=== PATIENT | male | born 1960 | race Caucasian/White ===

== ENCOUNTER 2024-12-24 16:07 | Inpatient (IN) | payer MEDICARE, OTHER ==
[~2024-12-24] VITALS: Ht 177.8 cm; Wt 76.7 kg
--- NOTE | 2024-12-24 16:17 | ED.PDOC ---
History of Present Illness HPI Comments This is a 64 year old male LYNNA presenting to the ED from [facility] with chief complaint of generalized weakness and abnormal labs. EMS reports that the patient has been experiencing generalized weakness for the past 2-3 weeks. EMS relays that the patient had recent blood work performed at [facility] which noted a Lactic Acid of 10, calling 911 during his visit due to the labs. Patient denies any chest pain, dizziness, N/V, SOB, abdominal pain, dysuria, flank pain, or fever. Time Seen by MD: 16:14 Reviewed Notes: Nurses Notes, Shaper Operator Notes, Medications, Allergies Allergies: Coded Allergies: NO KNOWN ALLERGIES (Unverified , 12/24/24) Information Source: Patient, Emergency Med Personnel Mode of Arrival: EMS Severity: Moderate Timing: Weeks Duration: Since onset Prehospital treatment: None Past Medical History PAST MEDICAL HISTORY: Denies Surgical History: Denies all surgeries Family History Family History: Reviewed,noncontributory to illness Social History Smoker: Non-Smoker Alcohol: Denies ETOH Use Drugs: Denies Drug Use Lives In: Home Constitutional: reports: fatigue, weakness; denies: chills, diaphoresis, fever, malaise, sweats, others EENTM: denies: blurred vision, double vision, ear bleeding, ear discharge, ear drainage, ear pain, ear ringing, eye pain, eye redness, hearing loss, mouth pain, mouth swelling, nasal discharge, nose bleeding, nose congestion, nose pain, photophobia, tearing, throat pain, throat swelling, voice changes, others Respiratory: denies: cough, hemoptysis, orthopnea, SOB at rest, shortness of breath, SOB with excertion, stridor, wheezing, others Cardiovascular: denies: chest pain, dizzy spells, diaphoresis, Dyspnea on exertion, edema, irregular heart beat, left arm pain, lightheadedness, palpitations, PND, syncope, others Gastrointestinal: denies: abdomen distended, abdominal pain, blood streaked bowels, constipated, diarrhea, dysphagia, difficulty swallowing, hematemesis, melena, nausea, poor appetite, poor fluid intake, rectal bleeding, rectal pain, vomiting, others Genitourinary: denies: burning, dysuria, flank pain, frequency, hematuria, incontinence, penile discharge, penile sore, pain, testicle pain, testicle swelling, urgency, others Neurological: denies: dizziness, fainting, headache, left sided numbness, left sided weakness, numbness, paresthesia, pre-existing deficit, right sided numbness, right sided weakness, seizure, speech problems, tingling, tremors, weakness, others Musculoskeletal: denies: back pain, gout, joint pain, joint swelling, muscle pain, muscle stiffness, neck pain, others Integumetry: denies: bruises, change in color, change in hair/nails, dryness, laceration, lesions, lumps, rash, wounds, others Allergic/Immunocompromised: denies: Difficulty Healing, Frequent Infections, Hives, Itching, others Hematologic/Lymphatic: denies: anemia, blood clots, easy bleeding, easy bruising, swollen glands, others Endocrine: denies: excessive hunger, excessive sweating, excessive thirst, excessive urination, flushing, intolerance to cold, intolerance to heat, unexplained weight gain, unexplained weight loss, others Psychiatric: denies: anxiety, bipolar disorder, depression, hopeless, panic disorder, schizophrenia, sleepless, suicidal, others All Other Systems: Reviewed and Negative Physical Exam General Appearance: Moderate Distress, Normal HEENT: Normal ENT Inspection, Pharynx Normal, TMs Normal Neck: Full Range of Motion, Non-Tender, Normal, Normal Inspection Respiratory: Chest Non-Tender, Lungs Clear, No Accessory Muscle Use, No Respiratory Distress, Normal Breath Sounds Cardiovascular: No Edema, No JVD, No Murmur, No Gallop, Normal Peripheral Pulses, Regular Rate/Rhythm Breast Exam: Deferred Gastrointestinal: No Organomegaly, Non Tender, No Pulsatile Mass, Normal Bowel Sounds, Soft Genitalia: Deferred Pelvic: Deferred Rectal: Deferred Extremities: No calf tenderness, Normal capillary refill, Normal inspection, Normal range of motion, Non-tender, No pedal edema Musculoskeletal : Apperance: Normal Neurologic: Alert, dyer helper II-XII nml as Tested, No Motor Deficits, Normal Affect, Normal Mood, No Sensory Deficits Cerebellar Function: NOT DONE Reflexes: NOT DONE Skin: Dry, Normal Color, Warm Peripheral Pulses: 3+ Radial (R), 3+ Radial (L) Lymphatic: No Adenopathy Was a procedure done? Was a procedure done?: No Differential Dx Considerations may include: Dehydration Electrolyte imbalance X-Ray, Labs, Meds, VS Vital Signs Date Time Temp Pulse Resp B/P (MAP) Pulse Ox O2 Delivery O2 Flow Rate FiO2 12/24/24 16:30 80 14 99 Room Air* 0 21 12/24/24 16:30 98.1 80 14 161/87 (111) 99 98.1 12/24/24 16:21 98.1 82 18 156/85 100 98.1 Lab Test 12/24/24 16:29 Range/Units White Blood Count 8.1 4.4-10.8 10^3/uL Red Blood Count 3.12 L 4.5-5.90 10^6/uL Hemoglobin 11.2 L 13.5-17.5 g/dL Hematocrit 33.3 L 41.0-53.0 % Mean Corpuscular Volume 106.7 H 80.0-100.0 fL Mean Corpuscular Hemoglobin 35.9 H 28.0-32.0 pg Mean Corpuscular Hemoglobin Concent 33.7 32.0-36.0 g/dL Red Cell Distribution Width 13.5 11.8-14.3 % Platelet Count 215 140-450 10^3/uL Mean Platelet Volume 9.5 6.9-10.8 fL Neutrophils (%) (Auto) 75.1 37.0-80.0 % Lymphocytes (%) (Auto) 12.2 10.0-50.0 % Monocytes (%) (Auto) 11.7 0.0-12.0 % Eosinophils (%) (Auto) 0.0 0.0-7.0 % Basophils (%) (Auto) 1.0 0.0-2.0 % Neutrophils # (Auto) 6.1 1.6-8.6 10 ^3/uL Lymphocytes # (Auto) 1.0 0.4-5.4 10 ^3/uL Monocytes # (Auto) 0.9 0-1.3 10 ^3/uL Eosinophils # (Auto) 0 0-0.8 10 ^3/uL Basophils # (Auto) 0.1 0-0.2 10 ^3/uL Nucleated Red Blood Cells 0.4 % Sodium Level Pending Potassium Level Pending Chloride Level Pending Carbon Dioxide Level Pending Anion Gap Pending Blood Urea Nitrogen Pending Creatinine Pending Glomerular Filtration Rate Calc Pending BUN/Creatinine Ratio Pending Serum Glucose Pending Lactic Acid Level 9.8 *H 0.4-2.0 mmol/L Calcium Level Pending Current Medications Medications (Trade) Dose Ordered Sig/Florinda Route Start Time Stop Time Status Last Admin Sodium Chloride 1,000 ml @ 1,000 mls/hr Q1H ONCE IV 12/24/24 16:15 12/24/24 17:14 DC 12/24/24 16:39 Patient alert. Feeling weak. Good muscle strength. Vitals stable. Was at [facility] for which his lactic acid was elevated. Establish intravenous access. Was given fluids. Physical examination pristine. Lactic acidosis elevated. WBC within normal limits. Explained to the patient. Continue monitoring. Will be followed by night physician. Time of 1ST Reevaluation: 17:14 Reevaluation 1ST: Improved Patient Education/Counseling: Diagnosis, Treatment Family Education/Counseling: No Family Present SEPSIS Sepsis Screen Physician Orders Urinalysis (12/24/24 16:14) Basic Metabolic Panel (12/24/24 16:14) Vital Signs Date Time Temp Pulse Resp B/P (MAP) Pulse Ox O2 Delivery O2 Flow Rate FiO2 12/24/24 16:30 80 14 99 Room Air* 0 21 12/24/24 16:30 98.1 80 14 161/87 (111) 99 98.1 12/24/24 16:21 98.1 82 18 156/85 100 98.1 Laboratory Tests Test 12/24/24 16:29 Lactic Acid Level 9.8 mmol/L (0.4-2.0) *H White Blood Count 8.1 10^3/uL (4.4-10.8) Medications Medications Dose Ordered Sig/Florinda Route Start Time Stop Time Status Last Admin Dose Admin Sodium Chloride 1,000 ml @ 1,000 mls/hr Q1H ONCE IV 12/24/24 16:15 12/24/24 17:14 DC 12/24/24 16:39 Departure 1 Departure Time of Disposition: 16:20 Impression: Primary Impression: Dehydration Additional Impressions: Generalized weakness Lactic acidosis Disposition: 09 ADMITTED INPATIENT Admit to: Med Surg Condition: Guarded Critical Care Note Critical Care Time?: No Stability Stability form required: No Heart Score Heart Score: Heart Score Response (Comments) Value History N/A 0 EKG N/A 0 Age N/A 0 Risk Factors N/A 0 Troponin N/A 0 Total 0 I personally scribed for SHAVON JEFFERS MD ([email or web address]) on 12/24/24 at 16:17. Electronically submitted by Marcin Zuniga ([email or web address]). SHAVON JEFFERS MD Dec 24, 2024 16:17
[2024-12-24 16:30] VITALS: PULSE 80; RESP 14; O2SAT 99
[2024-12-24] MEDS: SODIUM CHLORIDE 0.9% 1,000 ML IV ONE ×2 (16:39→20:08)
[2024-12-24 16:55] LABS: Hematocrit 33.3 % (41.0-53.0); Hemoglobin 11.2 g/dL (13.5-17.5); Mean Corpuscular Hemoglobin 35.9 pg (28.0-32.0); Mean Corpuscular Volume 106.7 fL (80.0-100.0); Nucleated Red Blood Cells % 0.4 %
[2024-12-24 17:13] LABS: Lactic Acid w/Reflex 9.8 mmol/L (0.4-2.0)
[2024-12-24 17:52] LABS: Sodium 142 mmol/L (136-145)
[2024-12-24 17:53] LABS: Anion Gap 32 (5-15)
[2024-12-24 17:54] LABS: Calcium 9.1 mg/dL (8.7-10.4)
[2024-12-24 17:58] LABS: BUN/Creatinine Ratio 25.2 (10.0-20.0); Glucose 76 mg/dL (74-106)
[2024-12-24 18:39] LABS: Blood Urea Nitrogen 35 mg/dL (9-23); Carbon Dioxide 17 mmol/L (20-31); Chloride 93 mmol/L (98-107); Potassium 3.4 mmol/L (3.5-5.1)
[2024-12-24 19:25] VITALS: PULSE 76; RESP 18; O2SAT 99
[2024-12-24] MEDS: PIPERACILLIN-TAZOB 3.375GM 100 ML IV ONE (20:08)
[2024-12-24] MEDS ORDERED: DOCUSATE SOD 100 MG CAP PO PRN (21:00)
[2024-12-24] MEDS ORDERED: HYDROcodone-ACET 5/325MG TAB PO PRN (21:00)
[2024-12-24] MEDS ORDERED: ACETAMINOPHEN 325 MG TAB PO PRN (21:00)
[2024-12-24] MEDS ORDERED: ONDANSETRON HCL 4 MG/2 ML VIAL IV PRN (21:00)
[2024-12-24] MEDS: SODIUM CHLORIDE 0.9% 1,000 ML IV SCH (21:10)
--- NOTE | 2024-12-24 21:53 | DVHHP2 ---
History of Present Illness Reason for Visit: Generalized weakness History of Present Illness The patient is a 64-year-old male who denies past medical history presented to [facility] ED with complaint of generalized weakness. Patient reports he has been experiencing generalized weakness for the past 2-3 weeks, getting worse today that prompted this visit. Patient was seen and evaluated in the ED, laboratory data shows WBC 8.1, platelets 215, sodium 142, potassium 3.4, BUN 35, creatinine 1.39, glucose 76, anion gap 32, calcium 9.1, lactic acid 9.5 trending down to 4.5, blood pressure 127/72, heart rate 76, temperature 97.8 F, O2 saturation 99% on room air. Patient was given IV fluid normal saline, started on IV antibiotic regimen Zosyn, please see medication orders section in the computer. On my assessment, patient denied chest pain, no headache, no dizziness, no diaphoresis, no shortness of breaths, no nausea, no vomiting, no fever, no chills. Patient was admitted for further evaluation and medical management. Past Medical History Denies past medical history Past Surgical History Denies all surgeries Family History Reviewed, noncontributory to the management of this case. Past Social History The patient lives at home, denies smoking, alcohol or illicit drugs abuse. Review of Systems Constitutional: Yes: Weakness, Other (Fatigue); No: Fever, Chills, Sweats, Malaise Eyes: No: Pain, Vision change, Conjunctivae inflammation, Eyelid inflammation, Other, Redness ENT: No: Ear pain, Ear discharge, Nose pain, Nose discharge, Nose congestion, Mouth pain, Mouth swelling, Throat pain, Throat swelling, Other Respiratory: No: Cough, Dry, Shortness of breath, SOB with excertion, Wheezing, Hemoptysis, Pleuritic Pain, Sputum, Wheezing, Other Cardiovascular: No: Chest Pain, Palpitations, Orthopnea, Paroxysmal Noc. Dyspnea, Edema, Lt Headedness, Other Gastrointestinal: No: Nausea, Vomiting, Abdominal Pain, Diarrhea, Constipation, Melena, Hematochezia, Other Genitourinary: No Dysuria, No Frequency, No Incontinence, No Hematuria, No Retention, No Other Musculoskeletal: No: other, neck pain, shoulder pain, arm pain, back pain, hand pain, leg pain, foot pain Skin: No: Rash, Lesions, Jaundice, Bruising, Other Neurological: No: Weakness, Numbness, Incoordination, Change in speech, Confusion, Seizures, Other Allergies: Coded Allergies: NO KNOWN ALLERGIES (Unverified , 12/24/24) Medications Current Medications Medications Dose Ordered Sig/Florinda Route Start Time Stop Time Status Last Admin Dose Admin Piperacillin Sod/ Tazobactam Sod 100 ml @ 25 mls/hr Q8H IV 12/25/24 14:00 Sodium Chloride 1,000 ml @ 120 mls/hr Q8H20M IV 12/24/24 21:00 12/24/24 21:10 120 MLS/HR Acetaminophen/ Hydrocodone Bitart 1 tab Q4HP PRN PO 12/24/24 21:00 Ondansetron HCl 4 mg Q4HP PRN IV 12/24/24 21:00 Docusate Sodium 100 mg BIDPRN PRN PO 12/24/24 21:00 Acetaminophen 650 mg Q6HP PRN PO 12/24/24 21:00 Exam Vital Signs Vital Signs Date Time Temp Pulse Resp B/P (MAP) Pulse Ox O2 Delivery O2 Flow Rate FiO2 12/24/24 20:00 79 12/24/24 19:25 97.8 18 127/72 (90) 99 97.8 12/24/24 19:25 Room Air* 0 21 General Appearance: Alert, Oriented X3, Cooperative, No acute distress HEENT: Atraumatic, PERRLA, EOMI, Mucous membr. moist/pink Respiratory: Clear to auscultation, Normal air movement Cardiovascular: Regular rate, Normal S1, Normal S2, No murmurs Abdominal: Normal bowel sounds, Soft, No tenderness, No hepatospenomegaly, No masses Extremities: No clubbing, No cyanosis, No edema, Normal pulses, No tenderness/swelling Skin: No rashes, No breakdown, No significant lesion Neuro: Normal speech, Normal tone, Sensation intact, Cranial nerves 3-12 NL, Reflexes 2+, Other (Generalized weakness) Psych/Mental Status: Mental status NL, Mood NL Labs/Xrays Labs Test 12/24/24 18:42 12/24/24 17:25 12/24/24 16:29 Range/Units Lactic Acid Level 4.5 *H 0.4-2.0 mmol/L Sodium Level 142 136-145 mmol/L Potassium Level 3.4 L 3.5-5.1 mmol/L Chloride Level 93 L 98-107 mmol/L Carbon Dioxide Level 17 L 20-31 mmol/L Anion Gap 32 H 5-15 Blood Urea Nitrogen 35 H 9-23 mg/dL Creatinine 1.39 H 0.700-1.30 mg/dL Glomerular Filtration Rate Calc 56 >90 mL/min BUN/Creatinine Ratio 25.2 H 10.0-20.0 Serum Glucose 76 74-106 mg/dL Calcium Level 9.1 8.7-10.4 mg/dL White Blood Count 8.1 4.4-10.8 10^3/uL Red Blood Count 3.12 L 4.5-5.90 10^6/uL Hemoglobin 11.2 L 13.5-17.5 g/dL Hematocrit 33.3 L 41.0-53.0 % Mean Corpuscular Volume 106.7 H 80.0-100.0 fL Mean Corpuscular Hemoglobin 35.9 H 28.0-32.0 pg Mean Corpuscular Hemoglobin Concent 33.7 32.0-36.0 g/dL Red Cell Distribution Width 13.5 11.8-14.3 % Platelet Count 215 140-450 10^3/uL Mean Platelet Volume 9.5 6.9-10.8 fL Neutrophils (%) (Auto) 75.1 37.0-80.0 % Lymphocytes (%) (Auto) 12.2 10.0-50.0 % Monocytes (%) (Auto) 11.7 0.0-12.0 % Eosinophils (%) (Auto) 0.0 0.0-7.0 % Basophils (%) (Auto) 1.0 0.0-2.0 % Neutrophils # (Auto) 6.1 1.6-8.6 10 ^3/uL Lymphocytes # (Auto) 1.0 0.4-5.4 10 ^3/uL Monocytes # (Auto) 0.9 0-1.3 10 ^3/uL Eosinophils # (Auto) 0 0-0.8 10 ^3/uL Basophils # (Auto) 0.1 0-0.2 10 ^3/uL Nucleated Red Blood Cells 0.4 % SEPSIS Sepsis Screen Date sepsis recognized/suspect: Dec 24, 2024 Time Sepsis recognized/suspect: 1924 Recent Procedure: No On Antibiotic Therapy: No Respiratory Rate >20: No Heart Rate >90: No Temp<36 C (96.8 F) or >38.3 C: No SBP <90 or MAP <65 mmHG: No New Acute Mental Status Change: No Is the patient on CPAP, BIPAP,: No Physician Orders Urinalysis (12/24/24 16:14) Blood Culture (12/24/24 20:16) Lactic Acid W/ Reflex Order (12/24/24 23:00) Allergies (12/24/24 20:46) Code Status (12/24/24 20:46) Sodium Chloride 0.9% (12/24/24 21:00) Oxygen Per Hour (12/24/24 20:46) Hydrocodone-Acet 5/325mg Tab ([place] 5/32 (12/24/24 21:00) Ondansetron Hcl (Zofran) (12/24/24 21:00) Docusate Sodium Capsule (Colace Capsule) (12/24/24 21:00) Complete Blood Count (12/25/24 04:00) Comprehensive Metabolic Panel (12/25/24 04:00) Cardiac Diet-2gna,Lofat,Lochol (12/25/24 Breakfast) Condition: Serious (12/24/24 20:46) Acetaminophen Tablet (Tylenol Tablet) (12/24/24 21:00) Bedrest With Bathroom Privileg (12/24/24 20:46) Sequential Compression Device (12/24/24 ) Piperacillin-Tazob 3.375gm (Zosyn 3.375g (12/25/24 14:00) Admit (12/24/24 21:50) Nitroglycerin Sublingual (Ntrostat Subli (12/24/24 22:00) Morphine Sulfate Injection (12/24/24 22:00) Stat Ekg For Chest Pain (12/24/24 21:50) Notify Md Of Changes From Base (12/24/24 21:50) 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 (12/24/24 21:50) Emergency Dysrhythmia Protocol (12/24/24 21:50) Rhythm Strips Once Every Shift (12/24/24 21:50) Oxygen By Nasal Cannula (12/24/24 21:50) Vital Signs Date Time Temp Pulse Resp B/P (MAP) Pulse Ox O2 Delivery O2 Flow Rate FiO2 7/31/25 20:00 79 12/24/24 19:25 97.8 76 18 127/72 (90) 99 97.8 12/24/24 19:25 76 18 99 Room Air* 0 21 12/24/24 16:52 78 12/24/24 16:30 80 14 99 Room Air* 0 21 12/24/24 16:30 98.1 80 14 161/87 (111) 99 98.1 12/24/24 16:21 98.1 82 18 156/85 100 98.1 Laboratory Tests Test 12/24/24 16:29 12/24/24 18:42 Lactic Acid Level 9.8 mmol/L (0.4-2.0) *H 4.5 mmol/L (0.4-2.0) *H White Blood Count 8.1 10^3/uL (4.4-10.8) Medications Medications Dose Ordered Sig/Florinda Route Start Time Stop Time Status Last Admin Dose Admin Piperacillin Sod/ Tazobactam Sod 100 ml @ 100 mls/hr ONCE ONCE IV 12/24/24 20:00 12/24/24 20:59 DC 12/24/24 20:08 100 MLS/HR Sodium Chloride 1,000 ml @ 120 mls/hr Q8H20M IV 12/24/24 21:00 12/24/24 21:10 120 MLS/HR Sodium Chloride 1,000 ml @ 1,000 mls/hr Q1H ONCE IV 12/24/24 16:15 12/24/24 17:14 DC 12/24/24 16:39 1,000 MLS/HR Sodium Chloride 1,000 ml @ 1,000 mls/hr Q1H ONCE IV 12/24/24 20:00 12/24/24 20:59 DC 12/24/24 20:08 1,000 MLS/HR Assessment/Plan Assessment/Plan Generalized weakness Hypokalemia Dehydration Lactic acidosis Plan 1. Admit to telemetry unit 2. Breathing treatment 3. Pain control management 4. IV antibiotic management 5. Management of fluids and electrolytes 6. Consultation for hospitalist 7. Diagnostic test x-ray 8. DVT prophylaxis-on SCDs 9. Repeat labs CBC, CMP in a.m. 10. Home medication reviewed and reconciled 11. Continue with current medical management 12. Treatment plan discussed with patient and RN. Patient verbalized understanding. Plan discussed with: Patient, Other (RN) My Orders Orders - CINDY KAUR DNP Procedure Category Date Status Time Lactic Acid W/ Reflex LAB 12/24/24 Logged Order 23:00 Allergies DESTINI 12/24/24 In Process 20:46 Code Status CODE 12/24/24 Transmitted 20:46 Sodium Chloride 0.9% PHA 12/24/24 In Process 21:00 Oxygen Per Hour RT 12/24/24 Transmitted 20:46 Hydrocodone-Acet PHA 12/24/24 In Process 5/325mg Tab (Elnora 21:00 Ondansetron Hcl PHA 12/24/24 In Process (Zofran) 21:00 Docusate Sodium PHA 12/24/24 In Process Capsule (Colace 21:00 Complete Blood Count LAB 12/25/24 Verified 04:00 Comprehensive LAB 12/25/24 Verified Metabolic Panel 04:00 Cardiac DIET 12/25/24 Transmitted Diet-2gna,Lofat,Lochol Breakfast Condition: Serious DESTINI 12/24/24 In Process 20:46 Acetaminophen Tablet PHA 12/24/24 In Process (Tylenol Tablet) 21:00 Bedrest With Bathroom DESTINI 12/24/24 In Process Privileg 20:46 Sequential DESTINI 12/24/24 In Process Compression Device Piperacillin-Tazob PHA 12/25/24 In Process 3.375gm (Zosyn 3.375g 14:00 Admit ADMIT 12/24/24 Transmitted 21:50 Nitroglycerin PHA 12/24/24 Transmitted Sublingual (Ntrostat 22:00 Morphine Sulfate PHA 12/24/24 Transmitted Injection 22:00 Stat Ekg For Chest [facility] 12/24/24 Transmitted Pain 21:50 Notify Md Of Changes [facility] 12/24/24 Transmitted From Base 21:50 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
[2024-12-24] MEDS ORDERED: MORPHINE SULFATE INJ 2 MG/ml SYRG IV PRN (22:00)
[2024-12-24] MEDS ORDERED: NITROGLYCERIN 0.4 MG SL TAB SL PRN (22:00)
[2024-12-24 22:42] LABS: Urine Protein, UAD TRACE (Negative)
[2024-12-24 23:24] LABS: Lactic Acid w/Reflex 3.6 mmol/L (0.4-2.0)
[2024-12-25] VITALS (8 sets, daily range): BP systolic 114–125; BP diastolic 60–77; PULSE 73–85; RESP 12–85; TEMP 97.9–98.9; O2SAT 96–100
[2024-12-25 04:27] LABS: Hematocrit 26.4 % (41.0-53.0); Hemoglobin 9.3 g/dL (13.5-17.5); Mean Corpuscular Hemoglobin 36.5 pg (28.0-32.0); Mean Corpuscular Volume 103.5 fL (80.0-100.0); Nucleated Red Blood Cells % 0.3 %
[2024-12-25 04:40] LABS: Alanine Aminotransferase 23 U/L (7-40); Albumin 3.7 g/dL (3.2-4.8); Alkaline Phosphatase 60 U/L (46-116); Anion Gap 23 (5-15); BUN/Creatinine Ratio 24.4 (10.0-20.0); Calcium 8.8 mg/dL (8.7-10.4); Carbon Dioxide 23 mmol/L (20-31); Glucose 86 mg/dL (74-106); Sodium 142 mmol/L (136-145)
[2024-12-25 04:42] LABS: Bilirubin, Total 1.3 mg/dL (0.2-1.0); Blood Urea Nitrogen 30 mg/dL (9-23); Chloride 96 mmol/L (98-107); Potassium 2.9 mmol/L (3.5-5.1); Total Protein 5.3 g/dL (5.7-8.2)
[2024-12-25] MEDS: POTASSIUM CHL 20MEQ/100ML 100 ML IV ONE (10:29)
--- NOTE | 2024-12-25 10:39 | DVH ---
EXAM: XY CHEST XRAY 1 VIEW Indication: pain likely aspiration Technique: Single frontal view of the chest was obtained Comparison: None FINDINGS: Lines and Tubes: None Lungs: No focal consolidation. Pleura: No effusion. No pneumothorax. Cardiomediastinal contours: Unremarkable Bones: No acute osseous abnormality. IMPRESSION: No acute cardiopulmonary disease.
--- NOTE | 2024-12-25 13:27 | DVH ---
INDICATION: transamnitis TECHNIQUE: Multiple real-time sonographic images were obtained of the right upper quadrant. COMPARISON: None FINDINGS: The liver demonstrates increased echotexture without focal mass lesions. The liver measure s 16.7 cm. There is no intrahepatic or extrahepatic ductal dilatation. The common duct measures 0.6 cm. Post cholecystectomy. The right kidney measures 11.0 cm. The right kidney is normal in contour, size, and shape. The echoge nicity is normal. There is no hydronephrosis. The pancreas is not well visualized due to overlying bowel gas. IMPRESSION: Hepatic steatosis and hepatomegaly.
[2024-12-25] MEDS: SODIUM CHLORIDE 0.9% 500 ML IV ONE (13:35)
[2024-12-25] MEDS ORDERED: PIPERACILLIN-TAZOB 3.375GM 100 ML IV SCH (14:00)
[2024-12-25] MEDS: LIDOCAINE 2%HCL (LOCAL ANESTH.) INJ 10ml MDV ONE (14:32)
[2024-12-25] MEDS: cefTRIAXone 1GM/50ML D5W 50 ML IV SCH (15:20)
--- NOTE | 2024-12-25 15:21 | DVH ---
CT CT AB PEL WITH IV CON ONLY INDICATION: R/O SBO; MASS EXAM DATE: 12/25/2024 02:34 PM COMPARISON: None RADIATION DOSE: CTDIvol: 7.9 mGy, DLP: 416.32 mGy*cm PROCEDURE: Helical CT images were obtained of the abdomen and pelvis with IV contrast Sagittal and co vince reconstructions are provided. ORAL CONTRAST: None. ADDITIONAL IMAGES / REFORMATS: None All CT s cans at this medical facility are performed using dose modulation techniques as appropriate to a perf ormed exam including the following: Automated exposure control was utilized; adjustment of the MA and /or KV according to patient size; and use of iterative reconstruction technique. FINDINGS: LUNG BASE: Normal. LIVER: Hepatic steatosis. GALLBLADDER AND BILIARY TREE: Cholecystectomy clips. Mild pneumobilia, nonspecific. PANCREAS: Normal. SPLEEN: Normal. BOWEL: Severe colonic diverticulosis. Normal appendix. ADRENALS: 2.5 cm left adrenal nodule. KIDNEYS AND URETER: 1.3 cm peripherally calcified left kidney cystic lesion. Nonobstructive right kid wiliam stone. BLADDER: Normal. REPRODUCTIVE ORGANS: Normal. LYMPH NODES:No lymphadenopathy. PERITONEUM: No ascites or free air. No other fluid collection. VESSELS: Scattered atherosclerotic calcifications are noted. RETROPERITONEUM: Normal. ABDOMINAL WALL: Normal. BONES: Scattered osseous degenerative changes are noted. IMPRESSION: Mild pneumobilia, nonspecific. No small bowel obstruction visualized. Hepatic steatosis. Severe colonic diverticulosis. 2.5 cm left adrenal nodule.
[2024-12-25] MEDS: SODIUM CHLORIDE 0.9% 1,000 ML IV SCH (16:18)
--- NOTE | 2024-12-25 16:48 | DVHPNRES ---
Progress Note Date Seen: Dec 25, 2024 Resident Creating Document: JORY ARMAS RESIDENT Medical Necessity Reason Pt with a Central, PICC or Fol: No Subjective Review of Systems 64 year old male with history of hypertension came to [facility] with complaints of generalized weakness. Patient reports that he has been experiencing generalized weakness for the past month, which is associated with weakness and decrease in appetite. Yesterday he went to [facility] and his lactic acid levels were high for which he was sent to the emergency at our facility. Patient also reports vomiting twice yesterday at the lab, he says he had no nausea and the vomiting was sudden with food particles, no blood was seen. Patient also had vomiting twice today in the Emergency according to him. He has had no recent sick contacts or traveled anywhere and he does not think he ate anything that might have caused the vomiting. patient also complains of feeling lightheaded and says that he holds onto the piedra and doorknobs so that he does not topical over. On inquiry he says that he feels dizziness and lightheaded when he gets up from a sitting position all of a sudden. PMH: Hypertension PSH: Gallbladder removed, umbilical hernia repair Family history: Reviewed and noncontributory Social history: Patient lives alone with his dog. He denies smoking, alcohol or using any other illicit drugs Home medications: Zebeta 10 mg b.i.d., hydrochlorothiazide Allergies: Patient went to intensive care medicine specialist, did not find anything on allergy test but takes Zyrtec for hives. ROS: Patient was seen and examined by me at the bedside. Patient reports having 2 episodes of vomiting which was watery. Today we stop Zosyn and started ceftriaxone and metronidazole. A CT pelvis with contrast was done. We also did an ultrasound of the liver which showed hepatomegaly. Patient's potassium was 2.94 which was repleted with 80 mEq potassium chloride. We ordered a urine toxicology, blood alcohol level which was normal. We also ordered a B12 and folate level. TSH as also ordered which was normal and chest x-ray was normal too. Objective vital signs Vital Sign Date Time Temp Pulse Resp B/P (MAP) Pulse Ox O2 Delivery O2 Flow Rate FiO2 12/25/24 12:00 71 12/25/24 10:20 15 133/75 (94) 100 12/25/24 08:43 Room Air* 0 21 12/25/24 08:07 98.8 98.8 Total Intake and Output 12/24/24 12/24/24 12/25/24 15:00 23:00 07:00 Intake Total 2220 ml 240 ml Balance 2220 ml 240 ml medications Current Medications Medications Dose Ordered Sig/Florinda Route Start Time Stop Time Status Last Admin Dose Admin Acetaminophen/ Hydrocodone Bitart 1 tab Q4HP PRN PO 12/24/24 21:00 Ondansetron HCl 4 mg Q4HP PRN IV 12/24/24 21:00 Docusate Sodium 100 mg BIDPRN PRN PO 12/24/24 21:00 Acetaminophen 650 mg Q6HP PRN PO 12/24/24 21:00 Nitroglycerin 0.4 mg Q5MINP PRN SL 12/24/24 22:00 Morphine Sulfate 2 mg Q30M PRN IV 12/24/24 22:00 Metronidazole 100 ml @ 100 mls/hr Q8HR IV 12/25/24 15:00 12/25/24 16:18 100 MLS/HR Ceftriaxone Sodium 50 ml @ 100 mls/hr DAILY@09 IV 12/25/24 14:27 12/25/24 15:20 100 MLS/HR Sodium Chloride 1,000 ml @ 100 mls/hr Q10H IV 12/25/24 15:30 12/26/24 00:00 12/25/24 16:18 100 MLS/HR Enteral Nutritional Formula 240 ml BIDWM PO 12/25/24 18:00 UNV Folic Acid 1 mg DAILY PO 12/26/24 10:00 UNV Pantoprazole Sodium 40 mg DAILY IV 12/26/24 10:00 UNV Examination General Appearance: Alert, Oriented X3, Cooperative, No acute distress HEENT: Atraumatic, PERRLA, EOMI, Mucous membr. moist/pink Respiratory: Clear to auscultation, Normal air movement Cardiovascular: Regular rate, Normal S1, Normal S2, No murmurs Abdominal: Normal bowel sounds, Soft, No tenderness, No hepatospenomegaly, No masses Extremities: No clubbing, No cyanosis, No edema, Normal pulses, No tenderness/swelling Skin: No rashes, No breakdown, No significant lesion Neuro: Normal speech, Normal tone, Sensation intact, Cranial nerves 3-12 NL, Reflexes 2+, Other (Generalized weakness) Psych/Mental Status: Mental status NL, Mood NL laboratory and microbiology Laboratory Tests 12/25/24 03:19 Test 12/25/24 03:19 Range/Units Serum Glucose 86 74-106 mg/dL Labs and/or images reviewed: Labs reviewed by me, Image(s) reviewed by me Problem List/Assessment/Plan Problem List/Assessment/Plan #Intravascular volume depletion, possible gastroenteritis -IV fluids given -Zosyn stopped and ceftriaxone, metronidazole started today 12/25/2024 insulin -CT abdomen pelvis done with contrast: Mild pneumobilia, nonspecific. No small bowel obstruction visualized. -Repeat BNP -500 bolus in his 100 cc per hour #Hypokalemia -Repleted #COOPER due to VMN - IV fluids given, continue IV fluid - monitor labs #Mixed microcytic/ macrocytic anemia - B12, folate, iron panels ordered - stool occult blood ordered - monitor H&H #B12 deficiency -Repleted #Folate deficiency -Repleted #transaminitis -Ultrasound liver shows hepatomegaly #moderate malnutrition possible #Anion gap metabolic acidosis due to lactic acidosis/Starvation ketosis -Decrease intake -Weight loss -Hyperproteinemia -Ensure protein supplementation given #adrenal nodule (2.5cm left adrenal) -as seen in ct -outpatient followup GI prophylaxis: Protonix 40 mg IV daily Diet: full liquid diet Goals of care discussed with the patient for more than 27 minutes: Full code status Case discussed with , patient and nurse. Plan discussed with: Patient, Other (rn) My Orders My Orders Orders - JORY ARMAS RESIDENT Procedure Category Date Status Time Drug Screen LAB 12/25/24 Logged 09:41 Chest Xray 1 View XY 12/25/24 Resulted 09:42 Metronidazole PHA 12/25/24 In Process 500mg/100ml (Flagyl 15:00 Ceftriaxone 1gm/50ml PHA 12/25/24 In Process D5w (Rocephin) 14:27 B-Type Natriuretic LAB 12/25/24 In Process Peptide 15:22 Sodium Chloride 0.9% PHA 12/25/24 In Process 15:30 Orthostatic Vital ORDERS 12/25/24 Transmitted Signs 15:47 Nutritional PHA 12/25/24 Logged Supplements (Ensure 18:00 Iron Panel LAB 12/25/24 Logged 15:56 Cyanocobalamin PHA 12/25/24 Logged Injection (Vitamin 16:45 Folic Acid PHA 12/25/24 Logged 16:45 Folic Acid Tablet PHA 12/26/24 Logged 10:00 Reticulocyte Count LAB 12/26/24 Verified 04:00 Pantoprazole PHA 12/26/24 Logged (Protonix) 10:00 Full Liq Diet DIET 12/25/24 Verified Dinner Date of Service: Dec 25, 2024 Billing Provider: DOV DE LA ROSA MD Common Visit Codes: [id number] INP/OBS CARE(HIGH) JORY ARMAS RESIDENT Dec 25, 2024 16:48 DOV DE LA ROSA MD Dec 28, 2024 00:47
[2024-12-25 17:22] LABS: Iron 160.0 ug/dL (65-175)
[2024-12-25 17:32] LABS: Total Iron Binding Capacity 178.0 ug/dL (250-425)
[2024-12-25] MEDS: Ensure HIGH Protein Chocolate 8oz Bottle PO SCH (18:01)
[2024-12-25] MEDS: CYANOCOBALAMIN (B-12) 1000 MCG/1 ML VIAL IM ONE (18:11)
[2024-12-25] MEDS: FOLIC ACID 1 MG in D5W 5% 50 ML INJ ONE (18:50)
[2024-12-25 20:26] LABS: INR 1.08 (0.9-1.15); Partial Thromboplastin Time 24.9 SEC (24.5-34.5); Prothrombin Time 11.4 sec (9.3-11.8)
[2024-12-25] MEDS: THIAMINE 100mg/ml INJ (200mg/2ml VIAL) IV ONE (20:32)
[2024-12-25 21:06] LABS: Protein, Urine 36.6 mg/dL (1-14)
[2024-12-25 21:11] LABS: Amphetamine Screen, Urine Neg (NEGATIVE); Barbiturate Scree,Urine Neg (NEGATIVE); Benzodiazephine Screen, Urine Neg (NEGATIVE); Cannabinoid Screen, Urine Neg (NEGATIVE); Cocaine Screen, Urine Neg (NEGATIVE); Opiate Scree,Urine Neg (NEGATIVE); Phencyclidine Screen, Urine Neg (NEGATIVE)
[2024-12-26] VITALS (9 sets, daily range): BP systolic 115–137; BP diastolic 62–88; PULSE 71–92; RESP 16–20; TEMP 98–98.3; O2SAT 97–99
[2024-12-26 06:44] LABS: Nucleated Red Blood Cells % 0.1 %
[2024-12-26 06:46] LABS: Hematocrit 23.0 % (41.0-53.0); Hemoglobin 8.0 g/dL (13.5-17.5); Mean Corpuscular Hemoglobin 36.4 pg (28.0-32.0); Mean Corpuscular Volume 104.2 fL (80.0-100.0)
[2024-12-26 06:53] LABS: Alanine Aminotransferase 13 U/L (7-40); Alkaline Phosphatase 54 U/L (46-116); Anion Gap 15 (5-15); BUN/Creatinine Ratio 17.9 (10.0-20.0); Bilirubin, Total 0.7 mg/dL (0.2-1.0); Blood Urea Nitrogen 14 mg/dL (9-23); Carbon Dioxide 26 mmol/L (20-31); Chloride 102 mmol/L (98-107); Glucose 83 mg/dL (74-106); Sodium 143 mmol/L (136-145)
[2024-12-26 06:54] LABS: Albumin 3.2 g/dL (3.2-4.8); Calcium 7.9 mg/dL (8.7-10.4); Potassium 3.0 mmol/L (3.5-5.1); Total Protein 4.5 g/dL (5.7-8.2)
[2024-12-26] MEDS: PANTOPRAZOLE 40 MG/10 ML VIAL INJ IV SCH (10:23)
[2024-12-26] MEDS: FOLIC ACID 1 MG TAB PO SCH (10:24)
[2024-12-26] MEDS: THIAMINE HCL 100 MG TAB PO SCH (10:24)
--- NOTE | 2024-12-26 14:47 | DVHPN2 ---
Subjective 64 year old male was admitted for weakness, poor appetite, anemia, macrocytic, COOPER Feels better today K+ is low Changes from previous H/P or p: Changes Eyes: No Pain, No Vision change, No Conjunctivae inflammation, No Eyelid inflammation, No Other, No Redness ENT: No Ear pain, No Ear discharge, No Nose pain, No Nose discharge, No Nose congestion, No Mouth pain, No Mouth swelling, No Throat pain, No Throat swelling, No Other Cardiovascular: No Chest Pain, No Palpitations, No Orthopnea, No Paroxysmal Noc. Dyspnea, No Edema, No Lt Headedness, No Other Respiratory: No Cough, No Dry, No Shortness of breath, No SOB with excertion, No Wheezing, No Hemoptysis, No Pleuritic Pain, No Sputum, No Other Gastrointestinal: No Nausea, No Vomiting, No Abdominal Pain, No Diarrhea, No Constipation, No Melena, No Hematochezia, No Other Genitourinary: No Dysuria, No Frequency, No Incontinence, No Hematuria, No Retention, No Other Musculoskeletal: No other, No neck pain, No shoulder pain, No arm pain, No back pain, No hand pain, No leg pain, No foot pain Skin: No Rash, No Lesions, No Jaundice, No Bruising, No Other Objective Vitals Vital Signs Date Time Temp Pulse Resp B/P (MAP) Pulse Ox O2 Delivery O2 Flow Rate FiO2 12/26/24 13:00 98.2 83 18 133/88 (103) 97 98.2 12/26/24 08:00 Room Air* 0 21 Intake/Output Intake and Output 12/26/24 07:00 Intake Total 2210 ml Output Total 550 ml Balance 1660 ml Intake Oral 450 ml IV Total 1760 ml Output Urine Total 550 ml # Voids 3 Medications Current Medications Medications Dose Ordered Sig/Florinda Route Start Time Stop Time Status Last Admin Dose Admin Acetaminophen/ Hydrocodone Bitart 1 tab Q4HP PRN PO 12/24/24 21:00 Ondansetron HCl 4 mg Q4HP PRN IV 12/24/24 21:00 Docusate Sodium 100 mg BIDPRN PRN PO 12/24/24 21:00 Acetaminophen 650 mg Q6HP PRN PO 12/24/24 21:00 Nitroglycerin 0.4 mg Q5MINP PRN SL 12/24/24 22:00 Morphine Sulfate 2 mg Q30M PRN IV 12/24/24 22:00 Metronidazole 100 ml @ 100 mls/hr Q8HR IV 12/25/24 15:00 12/26/24 05:04 100 MLS/HR Ceftriaxone Sodium 50 ml @ 100 mls/hr DAILY@09 IV 12/25/24 14:27 12/26/24 10:23 100 MLS/HR Enteral Nutritional Formula 240 ml BIDWM PO 12/25/24 18:00 12/26/24 08:00 240 ML Folic Acid 1 mg DAILY PO 12/26/24 10:00 12/26/24 10:24 1 MG Pantoprazole Sodium 40 mg DAILY IV 12/26/24 10:00 12/26/24 10:23 40 MG Thiamine HCl 100 mg DAILY PO 12/26/24 10:00 12/26/24 10:24 100 MG Laboratory Results Laboratory Tests 12/26/24 05:46 Chemistry Test 12/26/24 05:46 Albumin 3.2 g/dL (3.2-4.8) Calcium Level 7.9 mg/dL (8.7-10.4) L Total Protein 4.5 g/dL (5.7-8.2) L Coagulation Test 12/25/24 20:01 Prothrombin Time 11.4 sec (9.3-11.8) Prothrombin Time INR 1.08 (0.9-1.15) Activated Partial Thromboplast Time 24.9 SEC (24.5-34.5) LFT Test 12/26/24 05:46 Alanine Aminotransferase (ALT) 13 U/L (7-40) Alkaline Phosphatase 54 U/L (46-116) Aspartate Amino Transferase (AST) 46 U/L (13-40) H Total Bilirubin 0.7 mg/dL (0.2-1.0) Urinalysis Test 12/24/24 17:00 Urine Color Yellow (Yellow) Urine Clarity Clear (Clear) Urine pH 5.5 (5.0-9.0) Urine Specific [place] 1.019 (1.001-1.035) Urine Protein Trace (Negative) H Urine Ketones 4+ (Negative) H Urine Blood Negative /uL (Negative) Urine Nitrite Negative (Negative) Urine Bilirubin Negative (Negative) Urine Urobilinogen 2 mg/dL (Negative) H Urine Leukocyte Esterase Negative /uL (Negative) Urine RBC 1 /hpf (0 - 3) Urine Microscopic WBC 1 /HPF (0-3) Urine Squamous Epithelial Cells Few /hpf (<5) Urine Bacteria Few /hpf (None Seen) H Urine Hyaline Casts Many /lpf (0 - 2) Urine Mucus Few (None Seen) Urine Creatinine 81.70 mg/dL (30.0-125.0) Urine Protein/Creatinine Ratio 0.45 Urine Sodium 87 mmol/L (40-220) Urine Glucose Normal mg/dL (Normal) Urine Total Protein 36.6 mg/dL (1-14) H Microbiology Microbiology Date/Time Source Procedure Growth Status 12/24/24 20:28 Blood Blood Culture - Preliminary NO GROWTH AFTER 24 HOURS OF INCUBATION. Resulted Assessment/Plan Assessment/Plan Dehydration COOPER due to VMN Hypokalemia Lactic acidosis Macrocytic anemia B12 deficiency Folate deficiency transaminitis Diverticulosis PLAN: Replace K+ Replace B12 and Folic acid Regular diet Rocephin and Flagyl Monitor Plan discussed with: Patient My Orders Orders - GANESH MOSCOSO MD Procedure Category Date Status Time Regular Diet DIET 12/26/24 Transmitted Dinner Potassium Er Tablet PHA 12/26/24 Transmitted (Klor-Con Tablet) 14:45 Complete Blood Count LAB 12/27/24 Verified 04:00 Comprehensive LAB 12/27/24 Verified Metabolic Panel 04:00 Magnesium LAB 12/27/24 Verified 04:00 Date of Service: Dec 26, 2024 Billing Provider: GANESH MOSCOSO MD Common Visit Codes: [id number] INP/OBS CARE(HIGH) GANESH MOSCOSO MD Dec 26, 2024 14:47
[2024-12-26] MEDS: POTASSIUM CHL 20 Meq TABLET PO ONE (15:23)
[2024-12-27 01:00] VITALS: BP 129/78; PULSE 82; RESP 16; TEMP 99.5; O2SAT 99
[2024-12-27 05:00] VITALS: BP 127/66; PULSE 78; RESP 17; TEMP 97.9; O2SAT 98
[2024-12-27 08:00] VITALS: RESP 18; O2SAT 99
[2024-12-27 08:01] LABS: Hematocrit 24.2 % (41.0-53.0); Hemoglobin 8.5 g/dL (13.5-17.5); Mean Corpuscular Hemoglobin 36.4 pg (28.0-32.0); Mean Corpuscular Volume 103.2 fL (80.0-100.0); Nucleated Red Blood Cells % 0.3 %
[2024-12-27 08:20] LABS: Alanine Aminotransferase 14 U/L (7-40); Alkaline Phosphatase 60 U/L (46-116); Anion Gap 11 (5-15); BUN/Creatinine Ratio 13.9 (10.0-20.0); Blood Urea Nitrogen 10 mg/dL (9-23); Carbon Dioxide 29 mmol/L (20-31); Chloride 100 mmol/L (98-107); Glucose 104 mg/dL (74-106); Sodium 140 mmol/L (136-145)
[2024-12-27 08:21] LABS: Albumin 3.6 g/dL (3.2-4.8); Bilirubin, Total 0.7 mg/dL (0.2-1.0); Calcium 8.0 mg/dL (8.7-10.4); Potassium 3.2 mmol/L (3.5-5.1); Total Protein 5.0 g/dL (5.7-8.2)
[2024-12-27 08:23] LABS: Magnesium 0.8 mg/dL (1.6-2.6)
[2024-12-27] MEDS: MAGNESIUM SULFATE 1GM/100ML 100 ML IV SCH (08:52)
[2024-12-27 09:00] VITALS: BP 151/90; PULSE 85; RESP 19; TEMP 98.2; O2SAT 100
[2024-12-27] MEDS: POTASSIUM CHL 20 Meq TABLET PO ONE (11:07)
[2024-12-27] MEDS: CYANOCOBALAMIN (B-12) 1000 MCG/1 ML VIAL IM ONE (11:08)
[2024-12-27 13:00] VITALS: BP 118/68; PULSE 98; RESP 19; TEMP 98.5; O2SAT 99
[2024-12-27 16:30] VITALS: BP 134/88; PULSE 91; RESP 19; TEMP 99.1; O2SAT 98
--- NOTE | 2024-12-27 17:08 | DVHDSRES ---
Discharge Summary Date of Admission Resident Creating Document: JORY ARMAS RESIDENT Dec 24, 2024 at 21:50 Date of Discharge: Dec 27, 2024 Admitting Diagnosis #Intravascular volume depletion, possible gastroenteritis Labs/Diagnostic Data: Laboratory Results Test 12/27/24 07:46 12/26/24 11:44 12/26/24 06:50 12/25/24 20:01 White Blood Count 5.1 10^3/uL (4.4-10.8) Red Blood Count 2.35 10^6/uL (4.5-5.90) Hemoglobin 8.5 g/dL (13.5-17.5) Hematocrit 24.2 % (41.0-53.0) Mean Corpuscular Volume 103.2 fL (80.0-100.0) Mean Corpuscular Hemoglobin 36.4 pg (28.0-32.0) Mean Corpuscular Hemoglobin Concent 35.3 g/dL (32.0-36.0) Red Cell Distribution Width 13.3 % (11.8-14.3) Platelet Count 167 10^3/uL (140-450) Mean Platelet Volume 8.5 fL (6.9-10.8) Neutrophils (%) (Auto) 47.9 % (37.0-80.0) Lymphocytes (%) (Auto) 36.4 % (10.0-50.0) Monocytes (%) (Auto) 13.5 % (0.0-12.0) Eosinophils (%) (Auto) 1.0 % (0.0-7.0) Basophils (%) (Auto) 1.2 % (0.0-2.0) Neutrophils # (Auto) 2.5 10 ^3/uL (1.6-8.6) Lymphocytes # (Auto) 1.9 10 ^3/uL (0.4-5.4) Monocytes # (Auto) 0.7 10 ^3/uL (0-1.3) Eosinophils # (Auto) 0 10 ^3/uL (0-0.8) Basophils # (Auto) 0.1 10 ^3/uL (0-0.2) Nucleated Red Blood Cells 0.3 % Reticulocyte Count (auto) 0.73 % (0.5-1.5) Sodium Level 140 mmol/L (136-145) Potassium Level 3.2 mmol/L (3.5-5.1) Chloride Level 100 mmol/L (98-107) Carbon Dioxide Level 29 mmol/L (20-31) Anion Gap 11 (5-15) Blood Urea Nitrogen 10 mg/dL (9-23) Creatinine 0.72 mg/dL (0.700-1.30) Glomerular Filtration Rate Calc 101 mL/min (>90) BUN/Creatinine Ratio 13.9 (10.0-20.0) Serum Glucose 104 mg/dL (74-106) Calcium Level 8.0 mg/dL (8.7-10.4) Magnesium Level 0.8 mg/dL (1.6-2.6) Total Bilirubin 0.7 mg/dL (0.2-1.0) Aspartate Amino Transferase (AST) 43 U/L (13-40) Alanine Aminotransferase (ALT) 14 U/L (7-40) Alkaline Phosphatase 60 U/L (46-116) Total Protein 5.0 g/dL (5.7-8.2) Albumin 3.6 g/dL (3.2-4.8) POC Glucose 91 mg/dl (70-106) Stool Occult Blood Negative (Negative) Stool Occult Blood Sample #3 (Negative) Prothrombin Time 11.4 sec (9.3-11.8) Prothrombin Time INR 1.08 (0.9-1.15) Activated Partial Thromboplast Time 24.9 SEC (24.5-34.5) Ferritin 1619.0 ng/mL (22-322) Test 12/25/24 16:50 12/25/24 03:19 12/25/24 00:46 12/24/24 17:00 Iron Level 160 ug/dL (65-175) Total Iron Binding Capacity 178 ug/dL (250-425) Percent Iron Saturation 89.9 % (20-55) B-Type Natriuretic Peptide 230.23 pg/mL (0-100) Lipase 47 U/L (12-53) Vitamin B12 Level 247 pg/mL (211-911) Folic Acid 2.30 ng/mL (>5.38) Thyroid Stimulating Hormone (TSH) 1.09 uIU/mL (0.55-4.78) Plasma/Serum Blood Alcohol < 3.0 mg/dL (<10) Lactic Acid Level 1.8 mmol/L (0.4-2.0) Urine Color Yellow (Yellow) Urine Clarity Clear (Clear) Urine pH 5.5 (5.0-9.0) Urine Specific [place] 1.019 (1.001-1.035) Urine Protein Trace (Negative) Urine Ketones 4+ (Negative) Urine Blood Negative /uL (Negative) Urine Nitrite Negative (Negative) Urine Bilirubin Negative (Negative) Urine Urobilinogen 2 mg/dL (Negative) Urine Leukocyte Esterase Negative /uL (Negative) Urine RBC 1 /hpf (0 - 3) Urine Microscopic WBC 1 /HPF (0-3) Urine Squamous Epithelial Cells Few /hpf (<5) Urine Bacteria Few /hpf (None Seen) Urine Hyaline Casts Many /lpf (0 - 2) Urine Mucus Few (None Seen) Urine Creatinine 81.70 mg/dL (30.0-125.0) Urine Protein/Creatinine Ratio 0.45 Urine Sodium 87 mmol/L (40-220) Urine Glucose Normal mg/dL (Normal) Urine Total Protein 36.6 mg/dL (1-14) Urine Opiates Screen Neg (NEGATIVE) Urine Fentanyl Screen Neg (NEGATIVE) Urine Barbiturates Screen Neg (NEGATIVE) Urine Phencyclidine Screen Neg (NEGATIVE) Urine Amphetamines Screen Neg (NEGATIVE) Urine Benzodiazepines Screen Neg (NEGATIVE) Urine Cocaine Screen Neg (NEGATIVE) Urine Cannabinoids Screen Neg (NEGATIVE) Other Laboratory Tests 12/27/24 07:46 Brief Hx & Hospital Course: 64-year-old man with a past medical history of hypertension presented to the emergency department with complaints of generalized weakness. Patient reports he has been experiencing fatigue and weakness for the past month. He also reports that his appetite has decreased. Patient reports feeling lightheaded for the same amount of time, especially when he gets up from a sitting position and he says that he has to hold onto the piedra and door knobs for fear of toppling over. 2 days ago the patient went to [facility] in his lactic acid level was raised for which he was sent to the emergency department in [facility].Patient lso reports that he vomited 3 times yesterday in case her lab. He had no nausea and had sudden vomiting, he has had no sick contacts recently, had any food that might have caused it or traveled. PMH: Hypertension PSH: Umbilical hernia surgery 30 years ago, gallbladder removed Family history: Reviewed and noncontributory to the case Social history: Patient lives alone with his dog. He denies ever smoking, drinking alcohol or using any illicit drugs. Allergies: Patient takes Zyrtec for hives but does not know what causes them every day. He did an allergy test which Was nonconclusive Home medications: Zebeta 10 mg BD, hydrochlorothiazide Brief history of hospitalization: Patient came with intravascular volume depletion possibly gastroenteritis. We started him on IV fluids and Ceftriaxone, metronidazole. A CT abdomen and pelvis was done with contrast which showed mild pneumobilia which is nonspecific and no small bowel obstruction visualized. Patient had a gallbladder removed 2 months ago and a clip placed in his biliary tree which could be the cause for pneumobilia. For patient's COOPER due to VM in we gave him fluids and monitored labs. For patient's anemia with increased MCV we checked his B12 and folate levels both of which were low and repleted them. We also did an iron panel which showed likely anemia due to chronic disease and stool occult blood which came back negative. We continue to monitor his hemoglobin levels. Patient had hypokalemia and hypomagnesemia and we repleted the electrolytes. For his transaminitis we did a liver ultrasound which showed hepatomegaly. Patient has chronic alcohol dependence and we have counseled him regarding the cessation. He has possible moderate malnutrition, anorexia, onto intentional weight loss and an anion gap metabolic acidosis due to lactic acidosis- starvation ketosis due to decreased intake. We gave the patient ensure protein supplementation. For adrenal nodule that was seen on CT 2.5 cm on the left adrenal we have asked him to do outpatient follow up. Patient has been counseled regarding the continuation of ensure supplement, cessation of alcohol and he communicated understanding. He is now stable for discharge and has agreed with the discharge plan. Pt is lying on bed General Appearance: Alert, Oriented X3, Cooperative, frail looking HEENT: Atraumatic, Mucous membranes moist/pink Respiratory: Clear to auscultation, Normal air movement, No added sounds Cardiovascular: Regular rate, Normal S1, Normal S2, No murmurs Abdominal: Active bowel sounds, Soft, no distention, no tenderness Extremities: No edema, Normal pulses, No tenderness/swelling Skin: No Significant rash, no breakage in skin Neuro: Normal speech, sensorimotor deficits none Psych/Mental Status: Mental status NL, Mood NL Nurse was there as pilot control operator helper during examination Operations or Procedures EXAM: XY CHEST XRAY 1 VIEW Indication: pain likely aspiration IMPRESSION: No acute cardiopulmonary disease. PROCEDURE(s): LIVUS - LIVER REASON: transamnitis IMPRESSION: Hepatic steatosis and hepatomegaly. CT CT AB PEL WITH IV CON ONLY IMPRESSION: Mild pneumobilia, nonspecific. No small bowel obstruction visualized. Hepatic steatosis. Severe colonic diverticulosis. 2.5 cm left adrenal nodule. Condition at Discharge: Stable Final Diagnosis/Problems List #Intravascular volume depletion, possible gastroenteritis #COOPER due to VMN #Mixed microcytic/ macrocytic anemia #Rule out GI bleed #Chronic alcoholic dependence #B12 deficiency #Folate deficiency #transaminitis #moderate malnutrition possible #Anorexia #Unintentional weight loss #Anion gap metabolic acidosis due to lactic acidosis/Starvation ketosis #Hypokalemia #adrenal nodule (2.5cm left adrenal) Discharge Disposition: Home Discharge Instruct/Medications Diet: Cardiac 2g Na,low cholest Activity: No Restrictions, As Tolerated Follow Up/Referral: Follow up with PCP Follow up at discharge clinic within a week Medications: Continue home medications Continue to take folic acid, B12, magnesium once daily Unable to Obtain Active Prescriptions or Reported Meds Discharge Statement: "Patient was advised to return to the ER or call 911 if any headaches, dizziness, shortness of breath, chest pain, abdominal pain, bleeding, fevers, or worsening of medical condition. Patient was counseled about treatment plan, medications, possible side effects, patientverbalized understanding. All questions were answered to the best of my ability. This discharge took greater then 30 minutes in planning, reviewing documentation, counseling the patient, and discussing with other team members." ASSESSMENT ASSESSMENT Assessment Gastroenteritis Ketoacidosis due Malnutrition and Dehydration. Date of Service: Dec 27, 2024 Billing Provider: GANESH MOSCOSO MD Common Visit Codes: [id number] DISCH DAY >30min JORY ARMAS Dec 27, 2024 17:08 GANESH MOSCOSO MD Dec 27, 2024 21:53
== END 2024-12-27 16:00 | disposition home or self-care (01) | DRG 391 ==
LOC: EDBD 16:07 → ER 16:07 → OVERFLOW 21:50 → TELE-CENTR 12-25 17:24
PROVIDERS: ADMIT Student in an Organized Health Care Education/Training Program; ATTEND Student in an Organized Health Care Education/Training Program
DX: A08.4 Viral intestinal infection, unspecified (principal); N17.0 Acute kidney failure with tubular necrosis; E44.0 Moderate protein-calorie malnutrition; K92.2 Gastrointestinal hemorrhage, unspecified; E87.29 Other acidosis; E86.9 Volume depletion, unspecified; E86.0 Dehydration; E87.6 Hypokalemia; D53.9 Nutritional anemia, unspecified; E53.8 Deficiency of other specified B group vitamins; R63.0 Anorexia; R74.01 Elevation of levels of liver transaminase levels; E88.09 Other disorders of plasma-protein metabolism, not elsewhere classified; T73.0XXA Starvation, initial encounter; X58.XXXA Exposure to other specified factors, initial encounter; Z68.20 Body mass index [BMI] 20.0-20.9, adult; Z79.899 Other long term (current) drug therapy; E83.42 Hypomagnesemia
CPT/HCPCS: 36415; 71045; 74177; 76705; 80048; 80053; 80307; 80320; 81001; 82270; 82570; 82607; 82728; 82746; 82962; 83540; 83550; 83605; 83690; 83735; 83880; 84156; 84300; 84443; 85025; 85045; 85610; 85730; 87040; 96365; 96366; 96367; 96372; 96375; G0378; J2003; J2470; J2543; J3480; J3490; J7060

== ENCOUNTER 2025-01-05 06:57 | Outpatient (CLI) | payer MEDICARE ==
[2025-01-05 07:39] LABS: Hemoglobin 9.4 g/dL (13.5-17.5)
[2025-01-05 07:45] LABS: Hematocrit 26.7 % (41.0-53.0); Mean Corpuscular Hemoglobin 37.5 pg (28.0-32.0); Mean Corpuscular Volume 106.3 fL (80.0-100.0)
[2025-01-05 07:52] LABS: Chloride 104 mmol/L (98-107)
[2025-01-05 07:53] LABS: Anion Gap 12 (5-15); Calcium 8.9 mg/dL (8.7-10.4)
[2025-01-05 07:58] LABS: Glucose 83 mg/dL (74-106)
[2025-01-05 07:59] LABS: BUN/Creatinine Ratio 14.1 (10.0-20.0); Blood Urea Nitrogen 14 mg/dL (9-23); Magnesium 1.6 mg/dL (1.6-2.6)
[2025-01-05 08:17] LABS: Carbon Dioxide 31 mmol/L (20-31); Potassium 3.4 mmol/L (3.5-5.1); Sodium 147 mmol/L (136-145)
[2025-01-05 09:37] LABS: Total Cells Counted 100.0 (100)
[2025-01-05 09:38] LABS: Macrocytosis Moderate
== END 2025-01-05 17:00 | disposition home or self-care (01) ==
LOC: LAB 06:57
PROVIDERS: ATTEND Internal Medicine
DX: E83.42 Hypomagnesemia (principal); E87.6 Hypokalemia; D64.9 Anemia, unspecified
CPT/HCPCS: 36415; 80048; 83735; 85007; 85027

== ENCOUNTER 2025-01-26 11:13 | Outpatient (CLI) | payer MEDICARE ==
[2025-01-26 12:19] LABS: Anion Gap 14 (5-15); Carbon Dioxide 29 mmol/L (20-31); Chloride 102 mmol/L (98-107); Potassium 4.3 mmol/L (3.5-5.1); Sodium 145 mmol/L (136-145)
[2025-01-26 12:20] LABS: Calcium 9.5 mg/dL (8.7-10.4)
[2025-01-26 12:24] LABS: Glucose 93 mg/dL (74-106)
[2025-01-26 12:25] LABS: BUN/Creatinine Ratio 17.3 (10.0-20.0); Blood Urea Nitrogen 14 mg/dL (9-23); Magnesium 1.9 mg/dL (1.6-2.6)
== END 2025-01-26 17:00 | disposition home or self-care (01) ==
LOC: LAB 11:13
PROVIDERS: ATTEND Internal Medicine
DX: E83.42 Hypomagnesemia (principal); D64.9 Anemia, unspecified
CPT/HCPCS: 36415; 80048; 82088; 82533; 82607; 82746; 83735; 83835; 84244